=== PATIENT | female | born 1980 | race Caucasian/White ===

== ENCOUNTER → 2016-03-03 | Outpatient (REF) | payer SELFPAY ==
[2016-03-03 15:33] LABS: PERCENT SATURATION 12.1 % (13.2-37.4)
== END ==
LOC: M LAB REF 15:06
PROVIDERS: ATTEND Internal Medicine
DX: D64.9 Anemia, unspecified (principal)

== ENCOUNTER → 2017-07-28 | Outpatient (REF) | payer BC ==
[2017-07-28 12:50] LABS: CORTISOL AM 12.4 UG/DL (4.3-22.4)
[2017-07-28 12:57] LABS: IRON (FE) 56 UG/DL (50-170); TOTAL IRON BINDING CAPACITY 400 UG/DL (250-450)
== END ==
LOC: M LAB REF 12:16
DX: D50.9 Iron deficiency anemia, unspecified (principal); R63.5 Abnormal weight gain; I10 Essential (primary) hypertension
CPT/HCPCS: 83550

== ENCOUNTER → 2018-03-26 | Outpatient (REF) | payer BC ==
[2018-03-26 19:36] LABS: PERCENT SATURATION 10.2 % (13.2-45.0)
== END ==
LOC: M LAB REF 16:40
PROVIDERS: ATTEND Internal Medicine
DX: D50.9 Iron deficiency anemia, unspecified (principal)

== ENCOUNTER → 2018-07-30 | Outpatient (REF) | payer BC | LOC: M LAB REF 17:17 | PROVIDERS: ATTEND Internal Medicine | DX: D39.10 Neoplasm of uncertain behavior of unspecified ovary (principal) ==

== ENCOUNTER → 2018-12-23 | Outpatient (CLI) | payer BC ==
[~2018-12-23] MED LIST: ADVI100T PO; FERR325T16 PO; FURO40TA2 PO; LOSA100T50 PO; NORC1TAB7 PO; OMEG350C PO; ORTH1TAB8 PO; SPIR-10 PO
--- NOTE | 2018-12-25 08:31 | SLEEPCENT ---
DATE OF PROCEDURE: 12/23/2018 ORDERED BY: Meghan Olmedo NP Nocturnal polysomnography was performed for evaluation of sleep physiology in this patient with history of nonrestorative sleep who has comorbidities of obesity and hypertension. 7 hours and 42 minutes of data were reviewed. There were 161.5 minutes of sleep identified. Sleep latency was very prolonged at 177.5 minutes. Rapid eye movement (REM) sleep was further prolonged at 214 minutes. Sleep architecture late in the study was fair. The patient had a great deal of difficulty staying asleep in the last setting, and therefore, the sleep efficiency was only 35.3%. The electrocardiogram showed a sinus rhythm with an average heart rate of 90 beats per minute. Rate ranged 75-105. Electroencephalogram (EEG) showed some coarsening of background change. No focal events were identified. There were normal waveforms for awake and sleep. There were only 7 respiratory events identified of 10 seconds in duration or greater for an apnea-hypopnea index of only 2.6. Snoring was, however appreciated more particularly late in the study in REM and respiratory related arousals occurred three times per hour. Oxygen saturations were maintained at 90% plus throughout the study and there was minimal activity in the limb leads. IMPRESSION: Equivocal nocturnal polysomnography with snoring. COMMENT: Definitive evidence for obstructive sleep apnea was not demonstrated during the study. However, given the difficulty the patient had with sleeping in the lab environment, if sleep symptoms persist, repeat testing has been shown more sensitive for identification of mild disease.
== END ==
LOC: M SLEEP 19:52
PROVIDERS: ATTEND Nurse Practitioner Adult Health
DX: G47.30 Sleep apnea, unspecified (principal)

== ENCOUNTER 2018-12-27 05:51 | Day surgery (SDC) | payer BC ==
[~2018-12-27] VITALS: Ht 165.1 cm; Wt 142.4 kg
[~2018-12-27 05:51] MED LIST changes: -ADVI100T PO; -NORC1TAB7 PO
[2018-12-27] MEDS ORDERED: LR 1,000 ML IV ONE (06:00)
[2018-12-27] MEDS ORDERED: ceFAZolin SOD 2 GM in IV 1 EA IV ONE (06:00)
[2018-12-27 06:21] LABS: HEMATOCRIT 41.5 % (36.0-47.0); MEAN CORPUSCULAR HEMOGLOBIN 28.4 pg (27.0-33.0); MEAN CORPUSCULAR HGB CONC 31.3 g/dl (32.0-36.5); MEAN CORPUSCULAR VOLUME 90.8 fl (80.0-96.0); PLATELET COUNT, AUTOMATED 238 10^3/uL (150-450); RED BLOOD COUNT 4.57 10^6/uL (4.00-5.40); WHITE BLOOD COUNT 6.7 10^3/uL (4.0-10.0)
[2018-12-27] MEDS ORDERED: METHYLENE BLUE 0.5% (5MG/ML) 10 ML AMP (PROVAYBLUE)(Q9968 PER 1MG) As Ordered ONE (07:10)
[2018-12-27] MEDS ORDERED: PROPOFOL 200 MG/20 ML VIAL As Ordered ONE (07:23)
[2018-12-27] MEDS ORDERED: LIDOCAINE 2% INJ 100 MG/5 ML SDV (FOR ANES.) As Ordered ONE (07:23)
[2018-12-27] MEDS ORDERED: fentaNYL 250 MCG/5 ML INJECTION (J3010) As Ordered ONE ×2 (07:23→09:23)
[2018-12-27] MEDS ORDERED: MIDAZOLAM INJ 2 MG/2 ML VIAL (J2250) As Ordered ONE (07:24)
[2018-12-27] MEDS ORDERED: ROCURONIUM BROMIDE 50 MG/5 ML VIAL As Ordered ONE ×2 (07:24→09:00)
[2018-12-27] MEDS ORDERED: LACRILUBE (AKWA TEARS) OPHTH OINT 3.5 GM As Ordered ONE (09:01)
[2018-12-27] MEDS ORDERED: METOCLOPRAMIDE INJ 10MG/2ML VIAL (J2765) As Ordered ONE (09:43)
[2018-12-27] MEDS ORDERED: ONDANSETRON 4MG/2ML VIAL (J2405) As Ordered ONE (09:43)
[2018-12-27] MEDS ORDERED: dexameTHASONE 4 MG/ML 1ML VIAL (J1100) As Ordered ONE (09:43)
[2018-12-27] MEDS ORDERED: KETOROLAC 60 MG/2 ML VIAL (J1885) As Ordered ONE (09:43)
[2018-12-27] MEDS ORDERED: SUGAMMADEX SODIUM 500 MG/5 ML VIAL (BRIDION) As Ordered ONE (09:46)
[2018-12-27] MEDS ORDERED: ACETAMINOPHEN 1000MG 100ML IV BTL (OFIRMEV) (J0131 PER 10MG) As Ordered ONE (09:51)
[2018-12-27] MEDS ORDERED: HYDROmorphone HCL 2 MG/ML 1ML VIAL (J1170) As Ordered ONE (10:02)
[2018-12-27] MEDS ORDERED: MORPHINE 1MG/ML IN 0.9% NACL 100ML IV BAG As Ordered ONE (10:27)
[2018-12-27] MEDS ORDERED: oxyCODONE 5MG TAB PO PRN (10:30)
[2018-12-27] MEDS ORDERED: ONDANSETRON 4MG/2ML VIAL (J2405) IV PRN (10:30)
[2018-12-27] MEDS ORDERED: MEPERIDINE INJ 25 MG/ML VIAL (J2175) IV PRN (10:30)
[2018-12-27] MEDS ORDERED: IBUPROFEN 600 MG TAB PO PRN (10:30)
[2018-12-27] MEDS ORDERED: METOCLOPRAMIDE INJ 10MG/2ML VIAL (J2765) IV PRN (10:30)
[2018-12-27] MEDS ORDERED: LR 1,000 ML IV SCH (10:30)
[2018-12-27] MEDS ORDERED: KETOROLAC 30 MG/ML VIAL (J1885) IV PRN (10:30)
[2018-12-27] MEDS ORDERED: fentaNYL 100 MCG/2 ML INJECTION (J3010) IV PRN (10:30)
[2018-12-27] MEDS ORDERED: NALOXONE INJ 0.4 MG/1 ML VIAL (J2310) IV PRN (10:45)
[2018-12-27] MEDS ORDERED: NORCO, ANEXSIA 5/325MG TABLET (HYDROcodone/ACETAMINOPHEN) PO PRN (10:45)
[2018-12-27] MEDS ORDERED: diphenhydrAMINE INJ 50MG/ML VIAL (J1200) IV PRN (10:45)
[2018-12-27] MEDS ORDERED: EPIDURAL/PCA KEYS XX PRN (10:45)
[2018-12-27] MEDS ORDERED: MORPHINE 1MG/ML IN 0.9% NACL 100ML IV BAG IV PRN (10:45)
[2018-12-27] MEDS ORDERED: NALBUPHINE HCL 10 MG/ML AMP (J2300) IV PRN (10:45)
[2018-12-27] MEDS ORDERED: PROMETHAZINE INJ 25 MG/ML VIAL (J2550) As Ordered ONE (10:47)
[2018-12-27] MEDS: PROMETHAZINE INJ 25 MG/ML VIAL (J2550) IV PRN ×2 (10:50→11:00)
--- NOTE | 2018-12-27 11:14 | RO ---
DATE OF PROCEDURE: 12/27/2018 PREPROCEDURE DIAGNOSIS: Pain, bleeding and fibroids. POSTPROCEDURE DIAGNOSIS: Pain, bleeding and fibroids. PROCEDURE: Robotic assisted hysterectomy with bilateral salpingo-oophorectomy. SURGEON: Dr. Idalia Gold. YOUTH MANAGER: DEBI Mills. ANESTHESIA: General endotracheal anesthesia. DESCRIPTION OF PROCEDURE: Radha was brought to the operating room where sufficient general endotracheal anesthesia was induced. She was prepped, draped and positioned in the usual fashion. We had considerable difficulty positioning her safely on the table but we took extra time to make sure that she would not shift with Trendelenburg in an excessive fashion and with effort, were able to get that positioning right. Following this, of course, she was prepped and draped in the normal fashion. We then started by grasping the cervix, placing the uterine manipulatory with the two sutures to secure it to the cervix and placing the Byrd with the ability to backfill. We then turned our attention to the abdomen. A transverse semilunar incision was made below the umbilicus. Sharp and blunt dissection were continued to the subcutaneous tissue to the level of the rectus fascia. A transverse incision was made in the fascia. 0 Vicryl retention sutures were placed. The peritoneum was entered under direct visualization using open laparoscopic technique. Then the Stewart cannula was placed. It was used piggyback with the robot cannula. CO2 insufflation was begun and after adequate insufflation, the pelvis was visualized. There was a posterior lower uterine segment left lateral fibroid as expected and reassuring appearing ovaries and tubes with a benign appearing cyst on the right ovary, also some upper abdominal adhesions. Patient had a history of a previous herniorrhaphy. We placed two left side, one right side port as is typical in mitosis and then with the patient in Trendelenburg, docked the robot. Working from the robot console, we then isolated the infundibulopelvic ligaments and carefully cauterized and transected them being careful to stay away from ureters. We then carefully cauterized and dissected the round ligament, brought the broad ligament down anteriorly and posteriorly and using the cold scissors, created the anterior bladder flap and displaced the bladder anteriorly. We then, having isolated the uterine vasculature, carefully cauterized the uterine vasculature bilaterally and transected the lateral aspect of this. There was some redundant vasculature on the left side with that left-sided fibroid as expected. We then marked our line anteriorly but without doing the full colpotomy having the bladder well away and marking our planned line of dissection. Then elevated the uterus and were able to start posteriorly using the colpotomy with a U-shaped posterior incision working above the insertion of the uterosacrals to maintain as much of her support as we could. We transected, of course the uterine vasculature bilaterally and continued that colpotomy around anteriorly, again being careful to stay away from the bladder. She did have some ascending vessels. Th was a little bit of bleeding from that but not unusually much and the uterus, with the attached ovaries and tubes, was removed through the vaginal and used to hold pneumoperitoneum. We then used V-Loc suture to close the vagina being careful to make sure we had hemostatic control of those ascending vaginal pumpers. We did let pressure down off the suture to make sure we had that and made sure we everted those vessels so we could see it and suctioned out the apex of the vagina again, making sure there was not any back-bleeding that we were missing because of course, the vagina was plugged with the uterus at that point. So taking the time to watch this, we confirmed good hemostasis and completed the closure of the vaginal cuff. Of course, re-supporting the area near the uterosacrals, which of course were left attached to the vaginal cuff. After closure and removal of the uterus, we went ahead under low pressure and watched that vaginal cuff again and confirmed good hemostasis and approximation. The procedure was then ended with the CO2 allowed to escape the abdomen. The umbilical wound closed with 0 Vicryl retention sutures and the skin at all four wounds closed with a #3-0 Vicryl in a subcuticular stitch. Dry sterile dressings were then applied. Estimated blood loss for the procedure about 150 mL. Fluid replacement was Crystalloid. Complications: None. CONDITION AND DISPOSITION: Radha tolerated the procedure well and was recovering in the recovery room in good condition.
[2018-12-27 13:30] VITALS: BP 131/62
[2018-12-27 14:00] VITALS: BP 132/69
[2018-12-27] MEDS: LR 1,000 ML IV SCH ×2 (14:35→18:46)
[2018-12-27] MEDS: FUROSEMIDE 40 MG TAB PO SCH (14:50)
[2018-12-27] MEDS: SPIRONOLACTONE 25 MG TAB PO SCH (14:50)
[2018-12-27] MEDS: LOSARTAN 50 MG TAB PO SCH (14:50)
[2018-12-27 17:00] VITALS: BP 132/70
[2018-12-27 18:00] VITALS: BP 131/70
[2018-12-27 19:30] VITALS: BP 145/81
[2018-12-27 22:00] VITALS: BP 131/70
[2018-12-28 02:00] VITALS: BP 144/77
[2018-12-28] MEDS: LR 1,000 ML IV SCH (02:30)
[2018-12-28 03:03] VITALS: O2SAT 95
[2018-12-28 06:00] VITALS: BP 148/83
[2018-12-28 06:45] LABS: HEMATOCRIT 36.5 % (36.0-47.0); HEMOGLOBIN 11.7 g/dl (12.0-15.5); MEAN CORPUSCULAR HGB CONC 32.1 g/dl (32.0-36.5); MEAN CORPUSCULAR VOLUME 90.3 fl (80.0-96.0); PLATELET COUNT, AUTOMATED 242 10^3/uL (150-450); RED BLOOD COUNT 4.04 10^6/uL (4.00-5.40); WHITE BLOOD COUNT 9.6 10^3/uL (4.0-10.0)
[2018-12-28] MEDS ORDERED: NORC1TAB7 PO (08:16)
[2018-12-28] MEDS ORDERED: ADVI100T PO (08:16)
[2018-12-28] MEDS: SPIRONOLACTONE 25 MG TAB PO SCH ×2 (08:28→08:51)
[2018-12-28 08:29] VITALS: BP 166/91
[2018-12-28] MEDS: FUROSEMIDE 40 MG TAB PO SCH ×2 (08:29→08:51)
[2018-12-28] MEDS: LOSARTAN 50 MG TAB PO SCH (08:29)
== END 2018-12-28 10:21 | disposition home or self-care (01) ==
LOC: M SDC 05:51 → M MSPAV 13:19 → M SDC 12-28 10:21
PROVIDERS: ATTEND Obstetrics & Gynecology
DX: D25.9 Leiomyoma of uterus, unspecified (principal); N72 Inflammatory disease of cervix uteri; N83.11 Corpus luteum cyst of right ovary; N83.12 Corpus luteum cyst of left ovary; R10.2 Pelvic and perineal pain; N93.9 Abnormal uterine and vaginal bleeding, unspecified; I10 Essential (primary) hypertension; E28.2 Polycystic ovarian syndrome; E28.1 Androgen excess; M12.9 Arthropathy, unspecified; D64.9 Anemia, unspecified; R60.0 Localized edema; E66.01 Morbid (severe) obesity due to excess calories; Z68.43 Body mass index [BMI] 50.0-59.9, adult; Z79.899 Other long term (current) drug therapy; Z87.442 Personal history of urinary calculi
CPT/HCPCS: 36415; 58571; 81025; 85027; 86850; 86900; 86901; 88307; J0131; J0690; J1100; J1170; J1885; J2250; J2405; J2765; J3010

== ENCOUNTER → 2019-04-22 | Outpatient (REF) | payer BC ==
[~2019-04-22] MED LIST changes: +ADVI100T PO; +NORC1TAB7 PO
[2019-04-22 17:06] LABS: PERCENT SATURATION 11.6 % (13.2-45.0)
== END ==
LOC: M LAB REF 16:22
PROVIDERS: ATTEND Internal Medicine
DX: D50.9 Iron deficiency anemia, unspecified (principal)

== ENCOUNTER → 2019-07-31 | Outpatient (REF) | payer BC ==
[2019-08-01 08:09] LABS: MUMPS VIRUS IgG ANTIBODY 20.2 AU/mL (Immune >10.9); RUBEOLA IgG ANTIBODY 26.1 AU/mL (Immune >16.4)
== END ==
LOC: M LAB REF 12:08
PROVIDERS: ATTEND Physician Assistant Medical
DX: Z02.0 Encounter for examination for admission to educational institution (principal)

== ENCOUNTER → 2019-12-10 | Outpatient (REF) | payer BC | LOC: M LAB REF 16:26 | PROVIDERS: ATTEND Internal Medicine | DX: D50.9 Iron deficiency anemia, unspecified (principal) ==